=== PATIENT | female | born 1990 | race Caucasian/White ===

== ENCOUNTER 2017-09-16 23:23 | Observation (INO) | payer OTHER ==
[~2017-09-16] VITALS: Ht 162.6 cm; Wt 85.7 kg
[2017-09-16 23:47] VITALS: BP 106/65
[2017-09-16 23:47] LABS: APPEARANCE,URINE CLEAR (CLEAR); BILIRUBIN,URINE NEGATIVE (NEGATIVE); GLUCOSE, URINE (UA) NEGATIVE (NEGATIVE); KETONES,URINE NEGATIVE (NEGATIVE); LEUKOCYTE ESTERASE ,URINE SMALL (NEGATIVE); NITRATE,URINE NEGATIVE (NEGATIVE); OCCULT BLOOD,URINE NEGATIVE (NEGATIVE); PH,URINE 6.5 (5.0-8.0); PROTEIN,URINE NEGATIVE (NEGATIVE); UROBILINOGEN,URINE 0.2 mg/dL (<=1.0)
[2017-09-17 00:03] LABS: BACTERIA,URINE Rare /HPF (None Seen); RBC,URINE 0-2 /HPF (0-2); SQUAMOUS EPITHELIAL CELL,UR Few /LPF (None Seen)
[2017-09-17] MEDS ORDERED: CefTRIAXone SODIUM 1 GM in DEXTROSE 5%-WATER 10 ML IV ONE (00:30)
[2017-09-17] MEDS: RINGERS SOLUTION,LACTATED 1,000 ML IV SCH ×2 (01:04→04:55)
[2017-09-17] MEDS ORDERED: PREN1TAB80 PO (03:51)
== END 2017-09-17 09:25 | disposition home or self-care (01) ==
LOC: 4S 23:23
PROVIDERS: ADMIT Obstetrics & Gynecology; ATTEND Obstetrics & Gynecology
DX: O26.893 Other specified pregnancy related conditions, third trimester (principal); R10.30 Lower abdominal pain, unspecified; M54.5 Low back pain; R10.2 Pelvic and perineal pain; O42.913 Preterm premature rupture of membranes, unspecified as to length of time between rupture and onset of labor, third trimester; Z3A.30 30 weeks gestation of pregnancy
CPT/HCPCS: 59025; 76811; 80307 ×8; 81001; 87070; 87205; 96361; 96374; G0378 ×2; J0696; J7060; J7120; 96360